=== PATIENT | female | born 1980 | race Caucasian/White ===

== ENCOUNTER 2016-10-24 07:21 | Emergency (ER) | payer OTHER ==
[~2016-10-24] VITALS: Ht 162.6 cm; Wt 81.6 kg
[~2016-10-24 07:21] MED LIST: CIPR500T94 PO; HYDR-2678 PO; HYDR-971 PO; OXYC-323 PO
[2016-10-24] MEDS ORDERED: MORPHINE SULFATE 5 MG/ML SYRINGE. IV ONE (08:00)
[2016-10-24] MEDS ORDERED: ONDANSETRON PF 4 MG/2 ML VIAL. IV ONE (08:00)
[2016-10-24] MEDS ORDERED: IV NORMAL SALINE 1,000ML 1,000 ML IV ONE (08:00)
[2016-10-24 08:06] LABS: HEMATOCRIT 30.5 % (36.0-47.0); HEMOGLOBIN 9.6 g/dL (12.0-15.5); RED BLOOD COUNT 4.24 x10^6/uL (3.50-5.40); RED CELL DISTRIBUTION WIDTH 20.4 % (11.5-14.5); WHITE BLOOD COUNT 8.8 x10^3/uL (4.0-11.0)
[2016-10-24 08:11] LABS: CALCIUM 8.6 mg/dL (8.5-10.1); CREATININE 0.8 mg/dL (0.6-1.0); GFR 82.6; POTASSIUM 3.9 mmol/L (3.5-5.1)
--- NOTE | 2016-10-24 08:17 | ED.ADGEN ---
Past History Past Medical History: Anemia, Anxiety, Depression, Endometriosis, Kidney Infection, Kidney Stones, UTI Past Surgical History: Appendectomy, Cholecystectomy, , Gastric Bypass , Oophorectomy, Tonsillectomy, Tubal ligation Alcohol Use: None Drug Use: None Adult General Chief Complaint Chief Complaint Flank pain HPI HPI Patient is a 35 year old female who presents with left-sided flank pain. Started abruptly overnight. Nausea without associated vomiting. Patient believes it feels similar to when she's had a prior kidney stone. She states she was diagnosed kidney stone at [facility], no intervention was required. Patient has had multiple hospital visits to our facility, [facility] and surrounding facilities in recent months for same complaint. She's had over a dozen CT scans in the last year without findings to suggest cause. She's had an embolectomy, reports her tubes are tied. History of endometriosis as well. Multiple drug allergies. States she cannot take anti-inflammatories secondary to gastric bypass. She had a hospitalization last month for pyelonephritis which she completed antibiotic care. Patient is not actively following with primary care physician. Review of Systems Review of Systems Constitutional: Denies fever or chills [] Eyes: Denies change in visual acuity, redness, or eye pain [] HENT: Denies nasal congestion or sore throat [] Respiratory: Denies cough or shortness of breath [] Cardiovascular: Denies chest pain GI: Denies vomiting, bloody stools or diarrhea [] : per history of present illness Musculoskeletal: Denies joint pain [] Integument: Denies rash or skin lesions [] Neurologic: Denies headache, focal weakness or sensory changes [] Current Medications Current Medications Current Medications Medications (Trade) Dose Ordered Sig/[facility] Start Time Stop Time Status Last Admin Dose Admin Acetaminophen (Tylenol) 1,000 mg 1X ONCE 10/24/16 09:15 10/24/16 09:16 DC Morphine Sulfate (Morphine 5mg Syringe) 5 mg 1X ONCE 10/24/16 08:00 10/24/16 08:01 DC 10/24/16 08:00 5 MG Ondansetron HCl 4 mg 4 mg 1X ONCE 10/24/16 08:00 10/24/16 08:01 DC 10/24/16 08:00 4 MG Sodium Chloride (Iv Sodium Chloride 0.9% 1,000ml) 1,000 ml @ 1,000 mls/hr 1X ONCE 10/24/16 08:00 10/24/16 09:00 DC 10/24/16 08:00 1,000 MLS/HR Allergies Allergies Allergies Coded Allergies Type Severity Reaction Last Updated Verified ketorolac Allergy Intermediate Hives 08/16/16 Yes tramadol Allergy Intermediate Nausea and Vomiting 08/16/16 Yes NSAIDS (Non-Steroidal Anti-Inflamma Allergy Mild Anxiety 08/16/16 Yes amitriptyline Allergy Mild Anxiety 08/16/16 Yes metoclopramide Allergy Mild Anxiety 04/04/16 Yes prochlorperazine Allergy Mild Anxiety 04/04/16 Yes Physical Exam Physical Exam Constitutional: Well developed, well nourished, no acute distress, non-toxic appearance. [] HENT: Normocephalic, atraumatic, bilateral external ears normal, oropharynx moist, no oral exudates, nose normal. [] Eyes: PERRLA, EOMI, conjunctiva normal, no discharge. [] Neck: Normal range of motion, no tenderness, supple, no stridor. [] Cardiovascular:Heart rate regular rhythm, no murmur [] Lungs & Thorax: Bilateral breath sounds clear to auscultation [] Abdomen: Bowel sounds normal, soft, no tenderness, no masses, no pulsatile masses. [] Skin: Warm, dry, no erythema, no rash. [] Back: No tenderness, no CVA tenderness. [] Extremities: No tenderness, no cyanosis, no clubbing, ROM intact, no edema. [] Neurologic: Alert and oriented X 3, normal motor function, normal sensory function, no focal deficits noted. [] Psychologic: Affect normal, judgement normal, mood normal. [] Current Patient Data Vital Signs Vital Signs Date Time Temp Pulse Resp B/P Pulse Ox O2 Delivery O2 Flow Rate FiO2 10/24/16 10:05 89 20 141/83 98 Room Air 10/24/16 07:21 98.3 Lab Results Laboratory Tests Test 10/24/16 07:45 10/24/16 07:47 10/24/16 07:50 Urine Collection Type Unknown Urine Color [place] Urine Clarity Bloody Urine pH 5.5 Urine Specific [place] 1.015 Urine Protein Trace (NEG-TRACE) Urine Glucose (UA) Negmg/dL (NEG) Urine Ketones (Stick) Negmg/dL (NEG) Urine Blood Large (NEG) Urine Nitrite Neg (NEG) Urine Bilirubin Neg (NEG) Urine Urobilinogen Dipstick 0.2mg/dL (0.2 mg/dL) Urine Leukocyte Esterase Neg (NEG) Urine RBC >40/HPF (0-2) Urine WBC Rare/HPF (0-4) Urine Squamous Epithelial Cells Few/LPF Urine Bacteria 0/HPF (0-FEW) POC Urine HCG, Qualitative hcg negative (Negative) White Blood Count 8.8x10^3/uL (4.0-11.0) Red Blood Count 4.24x10^6/uL (3.50-5.40) Hemoglobin 9.6g/dL (12.0-15.5) L Hematocrit 30.5% (36.0-47.0) L Mean Corpuscular Volume 72fL (79-100) L Mean Corpuscular Hemoglobin 23pg (25-35) L Mean Corpuscular Hemoglobin Concent 31g/dL (31-37) Red Cell Distribution Width 20.4% (11.5-14.5) H Platelet Count 297x10^3/uL (140-400) Sodium Level 138mmol/L (136-145) Potassium Level 3.9mmol/L (3.5-5.1) Chloride Level 104mmol/L (98-107) Carbon Dioxide Level 23mmol/L (21-32) Anion Gap 11 (6-14) Blood Urea Nitrogen 9mg/dL (7-20) Creatinine 0.8mg/dL (0.6-1.0) Estimated GFR (Cockcroft-Gault) 82.6 Glucose Level 106mg/dL (70-99) H Calcium Level 8.6mg/dL (8.5-10.1) EKG EKG [] Radiology/Procedures Radiology/Procedures I reviewed the results of greater than 10 CT/ultrasound scans that did not show evidence of renal stones Limited left renal sonogram History: Left flank pain and hematuria. History of stones. Findings: The longitudinal and AP and transverse dimensions of the left kidney are 11.6 cm and 5.0 cm and 5.6 image respectively. No hydronephrosis or renal mass or perinephric fluid collection is seen on the left side. No echodensities with acoustic shadowing are seen to indicate a stone. Urinary bladder is mildly distended. No intraluminal echodensities or masses are seen. Bilateral ureteral jets are seen. IMPRESSION: Unremarkable left renal sonogram. Course & Med Decision Making Course & Med Decision Making Pertinent Labs and Imaging studies reviewed. (See chart for details) IV established, patient given IV saline, 5mg of morphine, 4 mg Zofran. I performed an extensive chart review and unfortunately this patient has shown drug-seeking behavior she's been seen 5 different facilities in the last 3 months for the same complaints requesting narcotic pain medication. I ordered a renal ultrasound to rule out any hydronephrosis, urinalysis, CBC and BMP performed. Patient does have chronic anemia secondary to her gastric bypass, hemoglobin at baseline. I discussed with the patient that her hematuria needs to be evaluated with cystoscopy if continues and referred to Dr. Kessler. I also instructed that no clear cause for her pain was found and she needed to f/u with PCP, as well as urology. Narcotics would not be prescribed as the patient has had so many visits at some many hospitals for similar complaint, concerned for opiate addiction. Final Impression Final Impression Hematuria Flank pain Drug-seeking behavior[] Problems: Dragon Disclaimer Dragon Disclaimer This electronic medical record was generated, in whole or in part, using a voice recognition dictation system. MALACHI DELGADILLO MD Oct 24, 2016 08:17
[2016-10-24 08:20] LABS: CLARITY,URINE BLOODY; COLOR,URINE PINK
[2016-10-24 08:21] LABS: BACTERIA,URINE 0 /HPF (0-FEW); BILIRUBIN,URINE NEG (NEG); GLUCOSE,URINE NEG (NEG); NITRITE,URINE NEG (NEG); RBC,URINE >40 /HPF (0-2); SQUAMOUS EPITHELIAL CELL,UR FEW /LPF; UROBILINOGEN,URINE 0.2 mg/dL (0.2 mg/dL); WBC,URINE RARE /HPF (0-4)
[2016-10-24] MEDS ORDERED: ACETAMINOPHEN 500 MG TABLET PO ONE (09:15)
[2016-10-24 10:05] VITALS: BP 141/83
--- NOTE | 2016-10-24 10:54 | RAD ---
Limited left renal sonogram History: Left flank pain and hematuria. History of stones. Findings: The longitudinal and AP and transverse dimensions of the left kidney are 11.6 cm and 5.0 cm and 5.6 image respectively. No hydronephrosis or renal mass or perinephric fluid collection is seen on the left side. No echodensities with acoustic shadowing are seen to indicate a stone. Urinary bladder is mildly distended. No intraluminal echodensities or masses are seen. Bilateral ureteral jets are seen. IMPRESSION: Unremarkable left renal sonogram.
== END 2016-10-24 10:08 | disposition home or self-care (01) ==
LOC: ER 07:21
DX: R10.9 Unspecified abdominal pain (principal); R31.9 Hematuria, unspecified; Z87.442 Personal history of urinary calculi; Z86.2 Personal history of diseases of the blood and blood-forming organs and certain disorders involving the immune mechanism; Z90.49 Acquired absence of other specified parts of digestive tract; Z98.890 Other specified postprocedural states; Z90.721 Acquired absence of ovaries, unilateral; Z98.51 Tubal ligation status; Z98.84 Bariatric surgery status; Z88.6 Allergy status to analgesic agent; Z88.8 Allergy status to other drugs, medicaments and biological substances
CPT/HCPCS: 36415; 76775; 80048; 81001; 84703; 85027; 96361; 96374; 96375; 99285; J2270; J2405; 81025; J7030